=== PATIENT | male | born 1995 | race Caucasian/White ===

== ENCOUNTER 2016-06-21 15:13 | Emergency (ER) | payer SELFPAY | END 2016-06-21 16:35 | disposition home or self-care (01) | LOC: D.ER 15:13 | DX: S61.402A Unspecified open wound of left hand, initial encounter (principal); W45.8XXA Other foreign body or object entering through skin, initial encounter; Y93.89 Activity, other specified; Y92.89 Other specified places as the place of occurrence of the external cause ==